=== PATIENT | male | born 1955 | race Caucasian/White ===

== ENCOUNTER → 2020-04-08 | Day surgery (SDC) | payer BC, OTHER ==
[~2020-04-08] MED LIST: DIOVAN80 MG PO; HYOSCYAMINE 0.125 MG TAB ONE; ROSUVASTATIN CA10 MG PO
[2020-04-08 11:20] VITALS: BP 113/73
--- NOTE | 2020-04-08 11:36 | Operative Report ---
DATE OF PROCEDURE: 04/08/2020 SURGEON: Lang Copeland MD PROCEDURE: Colonoscopy with polypectomy note. INDICATIONS FOR COLONOSCOPY: Colorectal cancer screening, father with colon cancer. MEDICATIONS: The patient was done under MAC, please see anesthesiologist's note. PROCEDURE IN DETAIL: With the patient in left lateral decubitus position, a flexible fiberoptic Olympus colonoscope was inserted into the rectum with ease and advanced all the way to the cecum. It was then withdrawn slowly, mucosa overlying the cecum, ascending colon, transverse colon appeared to be within normal limits. Two polyps were hot biopsied from the descending colon. The sigmoid appeared to be within normal limits. One polyp was hot biopsied from the rectum. The scope was then retroflexed into the distal rectum and small internal hemorrhoids were noted, none of which was actively bleeding. The scope was then straightened out, it was subsequently withdrawn. The patient tolerated the procedure well. IMPRESSION: 1. Descending colon polyps x2, hot biopsied. 2. Rectal polyp x1, hot biopsied. 3. Internal hemorrhoids, none actively bleeding. PLAN: 1. Follow up histology. 2. Initiate high-fiber, low-fat diet. 3. Initiate high-fiber supplement. 4. The patient might benefit from a followup colonoscopy in 3 years. Lang Copeland [place] [facility] [place] [facility] [place][id number] cc: Jevon Ferreira DO
== END | disposition home or self-care (01) ==
LOC: OR 08:02
PROVIDERS: ATTEND Internal Medicine Gastroenterology
DX: Z12.11 Encounter for screening for malignant neoplasm of colon (principal); D12.4 Benign neoplasm of descending colon; K62.1 Rectal polyp; K64.8 Other hemorrhoids; I10 Essential (primary) hypertension; Z01.810 Encounter for preprocedural cardiovascular examination; Z01.812 Encounter for preprocedural laboratory examination; Z11.59 Encounter for screening for other viral diseases; Z68.27 Body mass index [BMI] 27.0-27.9, adult; Z86.718 Personal history of other venous thrombosis and embolism; Z80.0 Family history of malignant neoplasm of digestive organs
CPT/HCPCS: 45384; 93005; U0002